=== PATIENT | male | born 1990 ===

== ENCOUNTER 2017-05-17 14:15 | Emergency (ER) | payer BC ==
[2017-05-17 14:54] VITALS: BP 107/82; PULSE 80; RESP 18; TEMP 98.2; O2SAT 99
[2017-05-17] MEDS ORDERED: DiphenhydrAMINE 50 mg/ml Inj IM STA (15:01)
--- NOTE | 2017-05-17 15:03 | ED PDOC ---
HPI: Allergic Reaction Time Seen by Provider: 05/17/17 14:57 Chief Complaint (Nursing): Allergic Reaction Chief Complaint (Provider): Allergic reaction History Per: Patient History/Exam Limitations: no limitations Onset/Duration Of Symptoms: Hrs Current Symptoms Are (Timing): Still Present Context: Food Possible Cause: Food Associated Symptoms: Swelling, Itching Home/EMS Treatment: None Additional History Per: Patient Additional Complaint(s): 27yo male, presents to ED for evaluation of right eye swelling and itching after he ate chickpeas. States his symptoms started 30 minutes after he ate the food. Patient state he has eaten chickpeas when he was younger but is unsure if he had a reaction at that time. He denies any throat swelling, lip swelling or shortness of breath. No other complaints. Past Medical History Reviewed: Historical Data, Nursing Documentation, Vital Signs Vital Signs: Last Vital Signs Temp 98.2 F 05/17/17 14:51 Pulse 80 05/17/17 14:51 Resp 18 05/17/17 14:51 BP 107/82 05/17/17 14:51 Pulse Ox 99 05/17/17 14:51 - Medical History PMH: No Chronic Diseases - Surgical History Surgical History: No Surg Hx - Family History Family History: States: No Known Family Hx - Home Medications Home Medications: Ambulatory Orders Medication Instructions Recorded DiphenhydrAMINE [Benadryl] 1 - 2 cap PO Q6 PRN #30 cap 05/17/17 predniSONE [Prednisone] 2 tab PO DAILY #8 tab 05/17/17 - Allergies Allergies/Adverse Reactions: Allergies Allergy/AdvReac Type Severity Reaction Status Date / Time peas Allergy SWELLING Verified 05/17/17 14:59 Review of Systems ROS Statement: Except As Marked, All Systems Reviewed And Found Negative Eyes: Positive for: Eyelid Inflammation (right sided) ENT: Negative for: Throat Pain, Throat Swelling Respiratory: Negative for: Shortness of Breath Physical Exam - Reviewed Nursing Documentation Reviewed: Yes Vital Signs Reviewed: Yes - Physical Exam Appears: Positive for: Non-toxic Head Exam: Positive for: ATRAUMATIC, NORMAL INSPECTION, NORMOCEPHALIC Skin: Positive for: Warm, Dry Eye Exam: Positive for: Periorbital swelling (right sided swelling with mild erythema. ), Other (minmal tearing noted to bilateral eyes) ENT: Positive for: Normal ENT Inspection, Other (mild right lower lip swelling) . Negative for: Pharyngeal Erythema, Tonsillar Swelling Cardiovascular/Chest: Positive for: Regular Rate, Rhythm Respiratory: Positive for: Normal Breath Sounds. Negative for: Wheezing, Respiratory Distress Neurologic/Psych: Positive for: Alert, Oriented - ECG O2 Sat by Pulse Oximetry: 99 (RA) Pulse Ox Interpretation: Normal - Progress ED Course And Treament: Impression: Allergic reaction Plan: -- Benadryl 50 mg IM -- Prednisone 40 mg PO Reassess Scribe Attestation: Documented by Cinthia Hair acting as a scribe for LAYLA Peguero Provider Attestation: All medical record entries made by the Scribe were at my direction and personally dictated by me. I have reviewed the chart and agree that the record accurately reflects my personal performance of the history, physical exam, medical decision making, and the department course for this patient. I have also personally directed, reviewed, and agree with the discharge instructions and disposition. Re-evaluation Time: 16:44 Condition: Re-examined, Improving,but remains with symptoms Disposition - Clinical Impression Clinical Impression: Allergic reaction - Patient ED Disposition Is Patient to be Admitted: No - Disposition Referrals: [facility] [Outside] Disposition: Routine/Home Disposition Time: 16:44 Condition: IMPROVED Prescriptions: DiphenhydrAMINE [Benadryl] 1 - 2 cap PO Q6 PRN #30 cap PRN Reason: itching or rash predniSONE [Prednisone] 2 tab PO DAILY #8 tab Instructions: Food Allergy (ED) Forms: [place] (Mosotho), [facility] ED School/Work Excuse
[2017-05-17] MEDS ORDERED: DiphenhydrAMINE 50 mg/ml Inj ONE (15:34)
== END 2017-05-17 16:54 | disposition home or self-care (01) ==
LOC: H.ER 14:15
DX: T78.40XA Allergy, unspecified, initial encounter (principal)
CPT/HCPCS: 96372; 99283; J1200